=== PATIENT | female | born 2000 | race African-American/Black ===

== ENCOUNTER 2020-04-08 19:35 | Inpatient (IN) | payer BC ==
[~2020-04-08] VITALS: Ht 147.3 cm; Wt 62.1 kg
[2020-04-08 19:40] VITALS: BP 119/75
[2020-04-08 20:11] LABS: URINE BILIRUBIN NEGATIVE (Negative); URINE BLOOD NEGATIVE (Negative); URINE CLARITY CLEAR; URINE COLOR YELLOW; URINE GLUCOSE-RANDOM* NEGATIVE (Negative); URINE KETONES NEGATIVE (Negative); URINE NITRITE-REFLEX NEGATIVE (Negative); URINE PROTEIN (DIPSTICK) NEGATIVE (Negative); URINE UROBILINOGEN 0.2 E.U./dl (0.2-1.0)
[2020-04-08 20:12] LABS: URINE LEUKOCYTES-REFLEX 1+ (Negative)
[2020-04-08 20:15] LABS: ABSOLUTE NEUTROPHILS 5.3 thou/uL (1.4-8.2); BASOPHILS 0.5 % (0.0-2.0); EOSINOPHILS 0.5 % (0.0-3.0); HEMATOCRIT 38.5 % (37.0-47.0); HEMOGLOBIN 12.4 gm/dL (12.0-15.0); LYMPHOCYTES 34.1 % (24.0-44.0); MCH 26.3 pg (26.0-34.0); MCHC 32.2 g/dL (28.0-37.0); MCV 81.5 fL (80.0-100.0); MONOCYTES 7.6 % (1.0-8.0); PLATELET COUNT 313 thou/uL (150-400); POLYS 57.3 % (36.0-66.0); RBC 4.73 mil/uL (4.20-5.00); RDW 13.7 % (10.5-14.5); WBC 9.3 thou/uL (4.0-11.0)
[2020-04-08 20:17] LABS: CALCIUM 9.7 mg/dL (8.5-10.1); CREATININE 0.6 mg/dL (0.6-1.0); POTASSIUM 3.7 mmol/L (3.5-5.1)
[2020-04-08 20:21] LABS: SQUAMOUS 4-10 Moderate /LPF (0-3)
[2020-04-08 20:22] LABS: BACTERIA-REFLEX >30 Many /HPF (None Seen); CASTS None Seen /LPF (None Seen); CRYSTALS None Seen /LPF (None Seen); URINE RBC None Seen /HPF (0-2)
[2020-04-08 20:24] LABS: ALBUMIN 4.3 g/dL (3.4-5.0); TOTAL BILIRUBIN 0.3 mg/dL (0.2-1.0); TOTAL PROTEIN 8.3 g/dL (6.4-8.2)
[2020-04-08 20:41] LABS: ABSOLUTE RETIC COUNT 0.045 10^6/uL; OBSERVED RETIC COUNT 0.97 % (0.6-2.6)
[2020-04-08 22:44] LABS: APTT 27.1 Seconds (24.5-32.8); PROTIME 10.7 Seconds (9.3-11.4)
[2020-04-09] VITALS (7 sets, daily range): BP systolic 94–118; BP diastolic 46–61
--- NOTE | 2020-04-09 04:43 | NUR ---
PATIENT IS A NEW ADMISSION TO THE UNIT THIS SHIFT. SHE ARRIVED VIA CART FROM THE ER AND WAS ABLE TO AMBULATE TO THE BED APPEARING STRONG AND BALANCED. PATIENT IS FULLY ALERT AND ORIENTED AND ABLE TO PARTICIPATE IN ADMISSION. [facility] REVEALS SLIGHT DRIFT TO LEFT UPPER EXTREMITY. CHIEF COMPLAINT IS HEADACHE WITH MEDICATION PROVIDED TO GOOD AFFECT. NURSE TO COMPLETE ADMISSION AND INITIATE PLAN OF CARE.
[2020-04-09 09:41] LABS: ANION GAP 12 mmol/L (7-16); BUN 8 mg/dL (7-18); CALCIUM 9.3 mg/dL (8.5-10.1); CHLORIDE 103 mmol/L (98-107); CHOLESTEROL 169 mg/dL (<200); CO2 24 mmol/L (21-32); CREATININE 0.6 mg/dL (0.6-1.0); GLUCOSE 96 mg/dL (74-106); HDL CHOLESTEROL 46 mg/dL (>40); LDL CHOLESTEROL 116 mg/dL (<100); SODIUM 139 mmol/L (136-145); TC:HDL 3.7 Ratio (Not establshd); TRIGLYCERIDE 37 mg/dL (<150); VLDL 7 mg/dL (<40)
--- NOTE | 2020-04-09 15:16 | EKG ---
[address] [place] [address] ELECTROCARDIOGRAM REPORT Name: YUMIKO CONTRERAS Room #: 219-P ADM IN M.R.#: [id number] Admission: 04/09/20 Attend Phys: Kelton Arteaga MD Discharge: Date of : [birth year] Report #: [id number] [facility] ED Test Date: 2020-04-08 Test Time: 19:52:27 Pat Name: YUMIKO CONTRERAS Department: Room: 219 Gender: F Finisher Map And Chart: [facility] : 2000 Requested By: Long Rivas Order Number: [id number] MD: Mikal Pisano Measurements Intervals [place] Rate: 61 P: 22 VA: 154 QRS: 51 QRSD: 87 T: 52 QT: 417 QTc: 420 Interpretive Statements Sinus rhythm Normal tracing No previous ECG available for comparison Electronically Signed On 04-09-2020 15:16:09 [employer] by Mikal Pisano [email or web address] <ELECTRONICALLY SIGNED> By: Mikal Pisano MD, [facility] 04/09/20 1516 51 51 Mikal Pisano MD, FACC /EPI
--- NOTE | 2020-04-09 17:17 | NUR ---
PT HAS HX OF MIGRAINES. DR CARDENAS TALKED TO PT. PT COMPLAINED OF LEFT SIDED MIGRAINE AND LEFT SIDED STIFFNESS/PAIN IN NECK. PT HAS BEEN EXPERIENCING A NUMB/TINGLING IN THE LEFT ARM. MODERATE STRENGTH PRESENT DURING ASSESSMENT. PT HAS ALSO COMPLAINED OF STOMACH PAIN NOT ASSOCIATED WITH NAUSEA, AND MID BACK PAIN. PT HAS HAD LITTLE TO NO RELIEF WITH ACETAMINOPHEN, CYCLOBENZAPRINE, HYDROCODONE, AND SOLUMEDROL. PT IS CURRENTLY SENSITIVE TO LIGHT AND NOISE. PT IS ALSO BEING TREATED FOR UTI. MRI 04/12/2020. PT HAS BEEN SLEEPING FOR MAJORITY OF DAY, UP AD MELVA TO TOILET. POC IS PAIN MGMT AND MINIMIZING ENVIRONMENTAL NOISE/LIGHT. NO CONCERNS AT THIS TIME.
--- NOTE | 2020-04-09 19:25 | NUR ---
I SENT MRI SCREENING SHEET AND EKG DONE IN ER TO CCU. PATIENT HAD ALREADY BEEN TRANSFERRED TO FLOOR.
[2020-04-10 02:06] LABS: GLYCOHEMOGLOBIN (HGB A1C) 5.4 % (4.8-5.6)
[2020-04-10 04:15] LABS: HEMATOCRIT 37.8 % (37.0-47.0); HEMOGLOBIN 12.3 gm/dL (12.0-15.0); MCH 26.7 pg (26.0-34.0); MCHC 32.7 g/dL (28.0-37.0); MCV 81.9 fL (80.0-100.0); RBC 4.61 mil/uL (4.20-5.00)
[2020-04-10 04:31] LABS: ALBUMIN 3.5 g/dL (3.4-5.0); CALCIUM 8.9 mg/dL (8.5-10.1); CREATININE 0.6 mg/dL (0.6-1.0); POTASSIUM 3.9 mmol/L (3.5-5.1); TOTAL BILIRUBIN 0.3 mg/dL (0.2-1.0); TOTAL PROTEIN 7.5 g/dL (6.4-8.2)
[2020-04-10 05:00] VITALS: BP 97/47
--- NOTE | 2020-04-10 05:29 | NUR ---
pt with con't naranjo, room kept dark and quiet, prn and 1 time meds given, encouraged increased po intake, vss, plan mri of head on sunday, will con't to monitor and control pain per ppoc.
[2020-04-10 07:00] VITALS: BP 95/43
[2020-04-10] MEDS ORDERED: ZOLOFT25 MG PO (08:44)
[2020-04-10] MEDS ORDERED: HYDROCODON-ACE1 EAC7 PO (08:45)
[2020-04-10] MEDS ORDERED: CEFUROXIME500 MG PO (08:48)
[2020-04-10 11:00] VITALS: BP 101/51
[2020-04-10 11:20] VITALS: BP 95/43
--- NOTE | 2020-04-10 15:26 | NUR ---
PT IS ALERT AND ORIENTED, STATING PAIN IN LEFT SIDE OF HEAD AND NECK AT A 3. DISCHARGE EDUCATION INCLUDED NEW MEDICATIONS. PT EDUCATED ON UTI MEASURES, INCLUDING INCREASE HYDRATION. PT STATED SHE UNDERSTOOD. PT DISCHARGED TO HOME. LEFT WITH BOYFRIEND IN PERSONAL VEHICLE.
== END 2020-04-10 15:30 | disposition home or self-care (01) | DRG 103 ==
LOC: ER 19:35 → 2N 04-09 01:27 → EROBS 04-09 01:27 → 2N 04-09 03:32
PROVIDERS: Emergency Medicine; Nurse Practitioner Family; ADMIT Internal Medicine; ATTEND Internal Medicine
DX: G43.909 Migraine, unspecified, not intractable, without status migrainosus (principal); N39.0 Urinary tract infection, site not specified
CPT/HCPCS: 10081